=== PATIENT | male | born 2000 | race African-American/Black ===

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

== ENCOUNTER 2021-06-18 12:13 | Emergency (ER) | payer BC, SELFPAY ==
[2021-06-18 12:14] VITALS: BP 178/113; PULSE 77; RESP 16; TEMP 36.6; O2SAT 100; BMI 24.8
--- NOTE | 2021-06-18 12:23 | RAD_ITS ---
STUDY: X-RAY - RIGHT HAND, ATTENTION FIFTH FINGER REASON FOR EXAM: Male, 21 years old. Injury/Pain -- Little finger TECHNIQUE: 3 view(s) of the finger were obtained. COMPARISON: None. FINDINGS: Normal metacarpal head. Normal metacarpophalangeal joint. Normal proximal phalanx. Normal middle phalanx. Normal distal phalanx. Dorsal dislocation of the proximal interphalangeal joint of the fifth digit. Normal distal interphalangeal joint. RAD/Finger(s) Min 2 Views IMPRESSION: Dorsal dislocation of the proximal interphalangeal joint of the fifth digit. Electronically Signed: Shaun Carrillo MD at 13:21 EST ,
[2021-06-18] MEDS: Lidocaine 1% (20 ml mdv) 20 ML Vial 5 ML INFILT (12:27)
--- NOTE | 2021-06-18 12:32 | EDS_ITS ---
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 He is right-hand dominant. He is unable used to right little finger. He denies paresthesia, anesthesia medics. Does complain of pain. Denies prior injury. Tetanus Immunization: 5-10 years Prior similar symptoms: No Recent Illness/Hospitalization: No PFSH PFSH Medical History no medical history no medical history Home Medications NK 06/16/20 [History Last Taken Unknown] Allergy/AdvReac Type Severity Reaction Status Date / Time No Known Allergies Allergy Verified 06/18/21 12:15 Family History no significant family his Surgical History no surgical history no surgical history Social History (Updated 06/18/21 @ 12:[address] Les Pires MD) household members: family Smoking Status: Never smoker alcohol intake: never substance use type: does not use ROS ROS ED Constitutional Constitutional ED: Denies chills, fever(s), subjective or sweats Musculoskeletal Musculoskeletal: Reports other Details: Deformed right little finger ; Denies back pain, myalgias or neck pain Integumentary Denies Abrasions or rash Neurologic Neurologic: Denies paresthesias or weakness EXAM Physical Exam Const Vital Signs: 06/18/21 12:14 Temperature 97.8 F Temperature Source Temporal Pulse Rate 77 Respiratory Rate 16 Blood Pressure 178/113 H Blood Pressure Mean 134 Pulse Ox 100 Oxygen Delivery Method Room Air Positive well nourished and well developed General Appearance ED: well developed; Negative for cyanotic, diaphoretic or NAD HEENT normocephalic and atraumatic Eyes PERRL and EOMs intact bilaterally Resp normal respiratory effort Cardio regular rate and regular rhythm Extremity Right Upper Extremity: hand and digits inspection (Deformity at the PIP joint and question DIP joint), palpation (Probable posterior dislocation of the PIP joint), ROM (Limited due to deformity), neurovascular exam, tendon exam (Limited extension and flexion due to deformity) and other (Capillary refill is normal. There is no subungual hematoma noted.) Neuro oriented x3 and CN's II-XII intact bilaterally Sensorium / Orientation: alert Psych mental status grossly normal Skin Lesions: no lesions Rashes: no rashes Trauma: no lacerations or abrasions [facility] Narrative Medical decision making narrative: X-ray was obtained to determine if patient has a fracture dislocation versus dislocation. Digital block was placed prior to patient going the x-ray to alleviate his pain and to facilitate reduction. X-ray does confirm posterior dislocation of the PIP joint. With axial traction and slight flexion the digit was reduced. After reduction the collateral l igaments were stressed. There is no laxity. Patient was placed in aluminum splint and referred to Dr. Vega. Radiography Diagnostic Testing: Three-view x-ray of the finger reveals a posterior dislocation without evidence of fracture of the PIP joint right little finger Procedures Other Procedures Procedure(s): Reduction of posterior dislocation PIP joint right little finger as described in the [facility] Discharge Plan Triage Chief Complaint: Disclocation ED Provider: Les Pires Dx/Rx/DC Orders Clinical Impression: Dislocation of distal interphalangeal joint of right little finger, initial encounter Instructions: ED Finger Dislocation Prescriptions: No Action NK RF: 0 Primary Care Provider: Kristopher Wang Referrals: Kristopher Wang MD [Primary Care Provider] - John Haddad DO [STAFF PHYSICIAN] - 5-7 Days Activity Restrictions/Additional Instructions: No basketball practice until cleared by orthopedics Apply ice 6-8 times a day Take either Tylenol or ibuprofen for discomfort. Disposition Disposition: Home, Self Care
[2021-06-18 12:57] VITALS: BP 157/77; PULSE 77; RESP 16; O2SAT 100
== END 2021-06-18 12:58 | disposition home or self-care (01) ==
LOC: ED 12:51
PROVIDERS: Emergency Provider Emergency Medicine; PCP Pediatrics; Visit Provider Emergency Medicine
DX: S63.286A Dislocation of proximal interphalangeal joint of right little finger, initial encounter (principal); X58.XXXA Exposure to other specified factors, initial encounter; Y93.67 Activity, basketball; Y92.214 College as the place of occurrence of the external cause; Y99.8 Other external cause status
CPT/HCPCS: 26770; 73140; 99283